=== PATIENT | male | born 1975 | race Hispanic/Latino ===

== ENCOUNTER 2019-03-13 18:01 | Inpatient (IN) | payer SELFPAY ==
[~2019-03-13 18:01] MED LIST: Iopamidol-370 76% 500 ML 1 ML ONE
--- NOTE | 2019-03-13 18:42 | RAD ---
AP CHEST: History: Cough and sore throat. FINDINGS: The lungs are well aerated and are clear of infiltrate as seen on this portable projection. Heart and mediastinum appear normal. IMPRESSION: Unremarkable portable chest. POS: AGW
[2019-03-13] MEDS ORDERED: Acetaminophen 500 MG TAB ONE (18:49)
[2019-03-13] MEDS ORDERED: Ibuprofen 800 MG TAB ONE (18:49)
[2019-03-13] MEDS ORDERED: Piperacillin/Tazobactam 3.375 GM VIAL ONE (18:54)
[2019-03-13 18:56] LABS: Mean Corpuscular HGB CONC 33.5 g/dL (32.0-36.0); Mean Corpuscular Hemoglobin 32.2 pg (27.0-31.0); Mean Corpuscular Volume 96.2 fL (78.0-98.0); Mean Platelet Volume 7.3 fL (7.4-10.4); Platelet Count 354 thou/uL (130-400); RBC Distribution Width 11.7 % (11.5-14.5); Red Blood Cell (RBC) Count 4.64 mill/uL (4.70-6.10); White Blood Cell (WBC) Count 21.2 thou/uL (4.8-10.8)
[2019-03-13 19:15] LABS: Band 3 % (5-11); Eosinophils 3 % (0-10); Lymphocytes 10 % (21-51); MDiff Complete? YES; Monocytes 13 % (0-10); Neutrophil 71 % (42-75); Platelet Morphology Comment Appears Adequate; RBC Morphology Normal
[2019-03-13 19:17] LABS: ALT (SGPT) 101 U/L (8-55); AST (SGOT) 53 U/L (5-34); Albumin 4.2 g/dL (3.5-5.0); Alkaline Phosphatase 294 U/L (40-110); Anion Gap 14 mmol/L (10-20); BUN (Urea Nitrogen) 7 mg/dL (8.9-20.6); Bilirubin, Total 1.1 mg/dL (0.2-1.2); Calc. Creatinine Clearance 0 mL/min (70-130); Calcium 10.1 mg/dL (7.8-10.44); Carbon Dioxide 20 mmol/L (22-29); Chloride 100 mmol/L (98-107); Estimated GFR-MDRD Greater than 90; Globulin 4.4 g/dL (2.4-3.5); Glucose 125 mg/dL (70-105); Potassium 3.6 mmol/L (3.5-5.1); Protein, Total 8.6 g/dL (6.0-8.3); Sodium 130 mmol/L (136-145)
[2019-03-13 20:22] LABS: Bacteria/HPF None Seen HPF (None Seen); Bilirubin Negative (Negative); Blood, Urine 1+ (Negative); Clarity Clear (Clear); Glucose, Urine (Dipstick) Normal (Negative); Leukocyte Negative Leu/uL (Negative); Nitrite Negative (Negative); Protein, Urine (Dipstick) Negative (Neg-Trace); RBC/HPF 0-3 HPF (0-3); Squamous Epithelial None Seen HPF (0-3); Urobilinogen Normal mg/dL (Less than 2); WBC/HPF 0-3 HPF (0-3)
[2019-03-13] MEDS ORDERED: Dexamethasone 10 MG/ML VIAL ONE (20:46)
--- NOTE | 2019-03-13 20:59 | CT ---
CT NECK WITH CONTRAST: Indications: Swelling right side of the neck. Cough and sore throat. Question abscess. FINDINGS: There is enlargement and heterogeneous enhancement of the palatine tonsils. There is low density in t he right palatine tonsil measuring 2 cm AP dimension x 3-4 cm craniocaudal dimension. There is also a n area of low density in the left palatine tonsil measuring 1 to 1.5 cm AP dimension x 2 cm craniocau jeff. These areas of low attenuation would be consistent with developing peritonsillar abscesses in yoly th palatine tonsils. There is enlargement of both palatine tonsils and this is producing significant airway narrowing in the oropharynx. There is evidence of edema extending into the right parapharyngeal space and some edema extending inf eriorly into the hypopharynx. There is abnormal edema in the region of the right vallecula involving the right aryepiglottic fold. Edema in the right parapharyngeal space extends to the right submandibu lar gland and there is edema and inflammatory change around the posterior and lateral aspect of the r ight submandibular gland. Larynx is unremarkable. Nasopharynx is unremarkable. Parotid glands appear unremarkable. Thyroid is unremarkable. There is bilateral cervical chain adenopathy. Large level II lymph nodes are seen bilaterally. Shirt Creaser space unremarkable. There is mucosal edema with airfluid level in the left maxillary sinus. Paranasal sinuses are well ae rated. Mastoids appear clear. IMPRESSION: 1. Enlargement and inflammatory change involving the palatine tonsils. There is evidence of developin g bilateral peritonsillar abscesses. This palatine tonsillar enlargement is producing significant air way narrowing in the oropharynx region. 2. Extension of inflammatory process with edema into the right parapharyngeal space and extending inf eriorly into the hypopharynx on the right with edema in the region of the vallecula and aryepiglotti c fold on the right. Early edema in the right retropharyngeal space. Edema and inflammatory change ex tends to the right submandibular gland. 3. Incidentally noted on lung windows is a tiny nodule in the left lung apex measuring approximately 4 mm. This is should be followed up with selective CT chest when feasible. 4. Ordering physician notified of this report. Code CR. Code LN POS: CALISTA
[2019-03-13] MEDS: Lactated Ringer's 1,000 ML IV SCH (22:32)
[2019-03-13] MEDS: Piperacillin/Tazobactam 3.375 GM in Sodium Chloride 0.9% 100 ML IVPB SCH (23:28)
[2019-03-13] MEDS: Dexamethasone 4 mg/ml Vial SLOW IVP SCH (23:28)
[2019-03-14] MEDS ORDERED: Vancomycin HCl 1 GM in Premix Bag 1 BAG IVPB SCH (04:00)
[2019-03-14] MEDS: Dexamethasone 4 mg/ml Vial SLOW IVP SCH (06:19)
[2019-03-14] MEDS: Piperacillin/Tazobactam 3.375 GM in Sodium Chloride 0.9% 100 ML IVPB SCH ×4 (06:19→23:22)
[2019-03-14 06:37] LABS: Hemoglobin 14.2 g/dL (14.0-18.0); Mean Corpuscular HGB CONC 32.5 g/dL (32.0-36.0); Mean Corpuscular Hemoglobin 31.2 pg (27.0-31.0); Mean Corpuscular Volume 95.9 fL (78.0-98.0); Mean Platelet Volume 7.4 fL (7.4-10.4); Platelet Count 328 thou/uL (130-400); RBC Distribution Width 11.8 % (11.5-14.5); Red Blood Cell (RBC) Count 4.57 mill/uL (4.70-6.10); White Blood Cell (WBC) Count 16.7 thou/uL (4.8-10.8)
[2019-03-14 06:49] LABS: ALT (SGPT) 83 U/L (8-55); AST (SGOT) 47 U/L (5-34); Albumin 3.5 g/dL (3.5-5.0); Alkaline Phosphatase 264 U/L (40-110); Anion Gap 12 mmol/L (10-20); BUN (Urea Nitrogen) 8 mg/dL (8.9-20.6); Bilirubin, Total 0.9 mg/dL (0.2-1.2); Calc. Creatinine Clearance 149 mL/min (70-130); Calcium 8.9 mg/dL (7.8-10.44); Carbon Dioxide 21 mmol/L (22-29); Chloride 107 mmol/L (98-107); Estimated GFR-MDRD Greater than 90; Globulin 4.1 g/dL (2.4-3.5); Glucose 164 mg/dL (70-105); Potassium 3.9 mmol/L (3.5-5.1); Protein, Total 7.6 g/dL (6.0-8.3); Sodium 136 mmol/L (136-145)
[2019-03-14 06:51] LABS: Band 8 % (5-11); Lymphocytes 2 % (21-51); MDiff Complete? YES; Monocytes 1 % (0-10); Neutrophil 89 % (42-75); Platelet Morphology Comment Appears Adequate; RBC Morphology Normal
[2019-03-14] MEDS: Lactated Ringer's 1,000 ML IV SCH (11:30)
--- NOTE | 2019-03-14 13:06 | HP ---
CHIEF COMPLAINT: Sore throat. HISTORY OF PRESENT ILLNESS: This patient is a 43-year-old male who developed some sore throat and cough. He thought it was the flu, so he took some byzu-cjo-iinefix medications. This progressed and he was having some difficulty swallowing and was unable to eat or drink well, so ultimately he presented to the emergency department where he was febrile and had some diaphoresis. He denies any other ill contacts. The patient was born in [place]. He has not been back to [place] for 2 to 3 years. REVIEW OF SYSTEMS: All other systems reviewed. All pertinent positives and negatives noted in the history of present illness. PAST MEDICAL HISTORY: None. PAST SURGICAL HISTORY: None. SOCIAL HISTORY: The patient is a nonsmoker, nondrug user. He does drink beer once or twice a month. He denies any allergies. MEDICATIONS: None. PHYSICAL EXAMINATION: VITAL SIGNS: Temperature 97.6, pulse 102, respirations 22, O2 saturation 100% on room air. FiO2 21%. BP 120/65. GENERAL APPEARANCE: Age-appropriate male, in no distress. He is awake, alert, oriented, pleasant, cooperative. HEENT: PERRL. He does have bilateral pharyngeal and tonsillar erythema and edema. Has poor dentition. NECK: Supple and symmetric with shotty lymphadenopathy. HEART: Regular rate and rhythm without murmurs, gallops, rubs. LUNGS: Clear to auscultation bilaterally. Good chest wall expansion and air exchange. ABDOMEN: Soft, nontender, and nondistended. Positive bowel sounds. No masses. No organomegaly. EXTREMITIES: No cyanosis, clubbing, or edema. LABORATORY DATA: His initial labs were white count 61306, hemoglobin 15. Sodium 130, potassium 3.6, CO2 is 20, AST 53, ALT 101, alkaline phosphatase 294. Repeat labs today, white count 16.7, hemoglobin 14.2, platelets 328. Sodium is now 136, AST is 47, ALT is 83, alkaline phosphatase 264. Strep screen is negative. Blood cultures negative. Chest x-ray is unremarkable. Soft tissue scan of the neck shows enlargement and inflammatory changes involving the palatine tonsils. There is evidence of developing bilateral peritonsillar abscess. [place] tonsil enlargement is producing significant airway narrowing in the oropharynx region, extension of inflammatory process with edema into the right parapharyngeal space and extending inferiorly into the hypopharynx on the right with edema in the region of the vallecula and area at the glottic fold on the right, early edema in the right retropharyngeal space, edema and inflammatory changes in the right submandibular gland. Incidental note on lung windows is a tiny nodule in the left lung apex measuring 4 mm with recommendation of followup CT of the chest when the patient is improved. IMPRESSION AND PLAN: 1. Pharyngitis with early abscess formation and extensive inflammation resulting in inability to swallow. I did discuss case with Dr. Poon, who happened to be rounding at the same time, does not believe there is a surgical intervention. The patient seems to be feeling somewhat better already with the IV antibiotics. Plan is continue with the IV antibiotics and then switch him over to p.o. Augmentin when he is able to adequately swallow. 2. Elevated liver enzymes, unclear etiology. We will need to recheck those one more time. They appear to be improving somewhat. Job ID: [id number]
[2019-03-14] MEDS ORDERED: FLU VACC QS2019-20(6MOS UP)/PF 60 MCG/0.5 ML SYRINGE IM ONE (21:00)
[2019-03-15] MEDS ORDERED: diphenhydrAMINE 25 MG CAP PO SCH (00:45)
--- NOTE | 2019-03-15 01:03 | CON ---
DATE OF CONSULTATION: CHIEF COMPLAINT: Inability to tolerate p.o., sore throat, shortness of breath, feeling of pain, and constricting of the throat. HISTORY OF PRESENT ILLNESS: The patient Jonathon Hutchins is a 43-year-old male patient presenting with a week long pain in the throat and increasing difficulty to take p.o., now presenting to the emergency room late on 03/13 for increasing difficulty with oral intake and then eventually inability to take oral intake and concern for dehydration, also concern for airway compromise and swelling causing patient to feel that the throat is closing up and significant pain, which is described as nearly 10/10 pain in the back of the throat extending down to the patient's chest. The patient does not report a fever, but admits that he has not taken his own temperature at home. The patient denies previous episodes with sore throat, but has had a long-term cough and has had frequent coughing episodes that has lasted sometime. The patient is unable to report vaccination history and the patient was born in [place], though he has not had any recent trips out of the country and has not been coughing up any blood. The patient complains of cold and clammy feeling of the skin, as well as significant pain. PAST MEDICAL HISTORY: No significant past medical history. The patient denies taking any medications for any complex medical issues in the past and denies previous infections of the oropharynx. PAST SURGICAL HISTORY: The patient denies head and neck surgery. SOCIAL AND FAMILY HISTORY: The patient is nonsmoker and non intravenous drug user. He does consume alcohol, but only a couple of drinks occasionally. ALLERGIES: THE PATIENT DENIES ALLERGIES TO ANY MEDICATIONS. CURRENT MEDICATIONS: The patient is not currently taking any regular medications. REVIEW OF SYSTEMS: SKIN: The patient complains of cool and clammy skin. EYES: Negative. EARS, NOSE, AND THROAT: Please see HPI, otherwise negative. RESPIRATORY: Some difficulty in shortness of breath and coughing. CARDIOVASCULAR: Negative. GASTROINTESTINAL: Negative. MUSCULOSKELETAL: Negative. NEUROLOGIC: Negative. HEMATOLOGIC: Negative. LYMPHATIC: Negative. IMMUNOLOGIC: Negative. ENDOCRINE: Negative. PHYSICAL EXAMINATION: GENERAL: Alert and oriented. No baseline stridor. HEAD AND FACE: Normocephalic, atraumatic. No facial skin lesions. No maxillary tenderness. No frontal tenderness. No parotid gland masses, lesions, and no tenderness. No submandibular gland masses or tenderness. EYES: Equally round and reactive to light. Extraocular movements are intact. No nystagmus on lateral gaze. EARS: Right pinna is normal. EAC is clear and TM is intact with normal landmarks. No evidence of effusion or infection. Left pinna is normal. EAC is clear. TM is intact with normal landmarks. No evidence of effusion or infection. TM is mobile to autoinsufflation. NOSE: External nose is normal. Nasal mucosa is mildly boggy. Turbinates are mildly erythematous. No masses or lesions. No purulent drainage. ORAL CAVITY: Lips, teeth, and tongue are normal with no significant swelling. Oral mucosa is mildly tacky without lesions. Tongue and floor of mouth are soft without masses. Palate and uvula have significant erythema and edema. Tonsils are enlarged with some mild purulent exudate, as well as erythema and edema surrounding the tonsils as well as the posterior pharynx. NECK: No significant lymphadenopathy. Only mild lymph node enlargement. Trachea is midline. Thyroid is normal size without apparent nodules or masses. NEUROLOGIC: Cranial nerves 2 through 12 are grossly intact. Mood and affect are normal. RADIOLOGY: CT scan shows significant tonsillar and pharyngeal edema as well, parapharyngeal edema and mild lymphadenopathy. There is mild hypodensities in the tonsils concerning for possible developing peritonsillar and tonsillar abscesses with narrowing of the airway. ASSESSMENT AND PLAN: A 43-year-old male patient presenting with significant odynophagia and dysphagia as well as shortness of breath and feeling of tightness in the throat and inability to take p.o. Given CT scan and elevated white count and physical exam, the patient has significant pharyngitis, tonsillitis, and edema of the throat. However, the patient is not currently having any airway distress. The patient is having some mild improvement on intravenous antibiotics. I recommend continuing antibiotics to cover the oral cavity and oropharynx microbiology. Recommend continuing antibiotics and continuing monitoring for improvement and trailing p.o. after patient has had improvement in pain and then transitioning to oral antibiotics before discharge. Recommend follow up in clinic for flexible laryngoscopy and evaluation of the upper airway and vocal folds and evaluation of his chronic cough. Thank you for this consult. Please call with any questions at [phone]. Job ID: [id number] [facility]
[2019-03-15] MEDS: Piperacillin/Tazobactam 3.375 GM in Sodium Chloride 0.9% 100 ML IVPB SCH ×2 (05:55→12:04)
[2019-03-15 08:03] VITALS: TEMP 97.8
[2019-03-15 09:10] LABS: Mean Corpuscular HGB CONC 31.2 g/dL (32.0-36.0); Mean Corpuscular Hemoglobin 30.3 pg (27.0-31.0); Mean Corpuscular Volume 97.3 fL (78.0-98.0); Mean Platelet Volume 7.5 fL (7.4-10.4); Platelet Count 385 thou/uL (130-400); RBC Distribution Width 11.8 % (11.5-14.5); Red Blood Cell (RBC) Count 4.61 mill/uL (4.70-6.10); White Blood Cell (WBC) Count 26.8 thou/uL (4.8-10.8)
[2019-03-15 09:20] LABS: Anion Gap 13 mmol/L (10-20); BUN (Urea Nitrogen) 8 mg/dL (8.9-20.6); Calc. Creatinine Clearance 143 mL/min (70-130); Calcium 8.9 mg/dL (7.8-10.44); Carbon Dioxide 22 mmol/L (22-29); Chloride 109 mmol/L (98-107); Estimated GFR-MDRD Greater than 90; Glucose 120 mg/dL (70-105); Potassium 3.3 mmol/L (3.5-5.1); Sodium 141 mmol/L (136-145)
[2019-03-15] MEDS ORDERED: Potassium Chloride 20 MEQ TAB PO SCH (10:30)
[2019-03-15 10:31] LABS: #Basophils 0.1 thou/uL (0.0-0.2); #Eosinphils 0.1 thou/uL (0.0-0.7); #Lymphocytes 3.7 thou/uL (1.20-3.40); #Monocytes 1.7 thou/uL (0.11-0.59); #Neutrophils 23.4 thou/uL (1.40-6.50); %Basophils 0.2 % (0.0-1.0); %Eosinophils 0.3 % (0.0-10.0); %Lymphocytes 12.9 % (21.0-51.0); %Monocytes 5.7 % (0.0-10.0); %Neutrophils 80.9 % (42.0-75.0)
--- NOTE | 2019-03-15 11:23 | CT ---
CT OF THE CHEST WITH IV CONTRAST INDICATION: Lung nodule COMPARISON: CT the soft tissues of the neck dated 03/13/2019 FINDINGS: CHEST: Lungs: There is a 4 mm pulmonary nodule in the left upper lobe corresponding to the nodule identified on the prior CT the soft tissues of the neck. No additional focal nodule is evident. Pleural space: No effusion. Mediastinum: No pathologically enlarged lymph nodes are evident. Upper abdomen:No acute abnormality. Osseous structures: No acute osseous abnormality. No destructive osteolytic or osteoblastic lesion i s identified. Soft tissues:Normal. IMPRESSION: 1. 4 mm left upper lobe pulmonary nodule. If the patient is low risk for malignancy, no additional fo llow-up is recommended. If patient is high risk for malignancy, follow-up CT in 6-12 months is recommended.
[2019-03-15 11:31] VITALS: BP 116/72
[2019-03-15 11:49] LABS: HBCM Index 0.05 S/CO (0-0.79); HBSAg Index 0.26 S/CO (0-0.99); Hep A IgM AB Non-Reactive (NonReactive); Hep B Surf Ag Non-Reactive S/CO (NonReactive); Hep C IgG Ab Non-Reactive (NonReactive); Hep C Index 0.06 S/CO (0-0.79); Hepatitis B Core IgM Abs Non-Reactive (NonReactive)
[2019-03-15] MEDS ORDERED: Iopamidol 370 76% 100 ML VIAL ONE (13:38)
--- NOTE | 2019-03-15 15:11 | ULT ---
ULTRASOUND ABDOMEN LIMITED: (RIGHT UPPER QUADRANT) DATE: 03/15/2019 HISTORY: 43-year-old male with transaminitis. FINDINGS: Gallbladder: Normal wall thickness. No gallstones or sludge identified. No pericholecystic fluid. Liver: Normal parenchymal echogenicity. Right kidney: No hydronephrosis. Pancreas: Visualized, with no gross sonographic abnormality identified (although ultrasound is relati vely insensitive for the detection of pancreatic pathology compared to CT and MRI.). Common duct caliber: 2 mm. IMPRESSION: Normal.
--- NOTE | 2019-03-15 23:36 | DIS ---
DATE OF ADMISSION: 03/13/2019 DATE OF DISCHARGE: 03/15/2019 DISCHARGE DIAGNOSES: 1. Acute pharyngitis/tonsillitis with early abscess formation. 2. Chronic cough. 3. Modest elevation of liver enzymes. HOSPITAL COURSE: The patient is a 43-year-old male, who presented to the hospital with significant pharyngitis which he initially thought was the flu. He subsequently had worsening pharyngeal edema and erythema, had some difficulty swallowing and presented to the Emergency Department. There, chest x-ray was negative. CT of the neck revealed enlargement of inflammatory changes of the palatine tonsil with evidence of developing bilateral peritonsillar abscesses, palatine tonsil enlargement with some airway narrowing. There was extension of the inflammatory process with edema into the right parapharyngeal space extending inferiorly into the hypopharynx on the right with edema in the region of the vallecula and aryepiglottic fold on the right, early edema in the right retropharyngeal space, edema and inflammatory changes extending to the submandibular gland. There was also an incidental note of 4 mm nodule at the left lung apex with a CT recommended. The patient was seen in consultation by Dr. Juice Poon, who did not feel there was any indication for surgical intervention. The patient initially received steroids and IV antibiotics and nebulizer treatments and was feeling substantially better. His white count did increase with the steroids, initially was at 21,000 and came down to 17 and then back up to 27 after the steroids. He had mild tachycardia with breathing treatments, which were ultimately discontinued. On 03/15/2019, temperature was 97.8, pulse 109, respirations 22, O2 saturations 99% on room air, BP was 106/64. The patient is awake and alert. Heart, regular rate and rhythm. His lungs are clear. Abdomen is benign. ENT exam reveals decreased inflammatory changes of the tonsillar or peritonsillar areas. There is still some persistent erythema appears to be somewhat faded from previous exam. The patient also had some mild elevation of liver enzymes, which improved slightly on recheck and felt to be stable for outpatient followup. DISPOSITION: The patient will have discussion regarding CT scan of the chest desired. We will get that prior to discharge and follow up on results. Otherwise, patient will be discharged home on a regular diet and activity level. He will be on Augmentin 875 b.i.d. and will follow up with Dr. Poon. He can return to the hospital at any time should he have any need to do so. Job ID: [id number]
--- NOTE | 2019-03-16 04:34 | PQF ---
[employer] Winform ViewerNIRAV VERGARA DAVID R MD [id number] CLINICAL DOCUMENTATION CLARIFICATION FORM: POST DISCHARGE Addendum to original discharge summary date: ____ Late entry note date: __ DATE: 03/16/2019 ATTN:BERNARD CORNELL MD Please exercise your independent, professional judgment in responding to the clarification form. Clinical indicators are provided on the bottom of this form for your review Please check appropriate box(s) to clarify if the following diagnosis has been ruled in or ruled out: SEPSIS (CDI/Coding list diagnosis here) [x ] Ruled in diagnosis [ x] Continue to treat [ ] Resolved [ ] Ruled out diagnosis [ ] Cannot rule out diagnosis [ ] Other diagnosis [ ] Unable to determine In addition, please specify: Present on Admission (POA): [x ] Yes [ ] No [ ] Unable to determine For continuity of documentation, please document condition throughout progress notes and discharge summary. Thank You. CLINICAL INDICATORS - SIGNS / SYMPTOMS / LABS Sepsis - Documented in ED notes pg#4 Temperature 101.3 on 03/13 - Documented in ED notes pg#2 Elevated WBC 21.2 on 03/13 and 26.8 on 03/15 - Documented in Laboratory Pulse rate 114 on 03/13 and 129 on 03/14 - Documented in Vital Signs BP 111/52 on 03/14 and 122/59 on 03/15 - Documented in Vital Signs RISK FACTORS Acute Pharyngitis with abscess - Documented in DS on 03/15 by BERNARD CORNELL MD TREATMENTS Vancomycin IVPB - Documented in Medication report [employer](This form is maintained as a part of the permanent medical record) 2014 [facility]. All Rights Reserved [email or web address]
== END 2019-03-15 17:20 | disposition home or self-care (01) | DRG 153 ==
LOC: ERS 18:01 → 3SE 21:51
PROVIDERS: ADMIT Emergency Medicine; ATTEND Emergency Medicine
DX: J02.9 Acute pharyngitis, unspecified (principal); R74.8 Abnormal levels of other serum enzymes; D72.829 Elevated white blood cell count, unspecified
CPT/HCPCS: 36415; 70491; 71045; 71260; 76705; 80048; 80053; 80074; 81003; 81015; 83605; 85025; 87040; 87081; 87086; 87430; 93005; 94640; 94760; 96361; 96365; 96374; 96375; J1100; J2543; J3370; J3490; J7620; Q0163; Q9967

== ENCOUNTER 2023-03-04 17:00 | Emergency (ER) | payer OTHER ==
[2023-03-04] MEDS ORDERED: Ibuprofen 200 MG TAB ONE (18:28)
[2023-03-04] MEDS ORDERED: Ibuprofen 800 MG TAB ONE (18:29)
== END 2023-03-04 18:40 | disposition home or self-care (01) ==
LOC: ERS 17:00
DX: S39.012A Strain of muscle, fascia and tendon of lower back, initial encounter (principal); V53.5XXA Driver of pick-up truck or van injured in collision with car, pick-up truck or van in traffic accident, initial encounter; W22.11XA Striking against or struck by driver side automobile airbag, initial encounter; Y93.I9 Activity, other involving external motion
CPT/HCPCS: 99283